=== PATIENT | female | born 1980 | race Caucasian/White ===

== ENCOUNTER 2021-08-25 11:04 | Day surgery (SDC) | payer MEDICAID ==
[~2021-08-25] VITALS: Ht 175.3 cm; Wt 92.7 kg
[~2021-08-25 11:04] MED LIST: SODIUM CHLORIDE 0.9% 1,000 ML IV ONE; SODIUM CHLORIDE 0.9% 1,000 ML ONE
[2021-08-25] MEDS ORDERED: PROPOFOL 1% 20 ML VIAL IVP ONE (11:05)
[2021-08-25 11:38] LABS: COVID AG,FIA SOURCE NASAL SWAB
== END 2021-08-25 15:10 | disposition home or self-care (01) ==
LOC: SURGERY 11:04
PROVIDERS: ATTEND Internal Medicine Gastroenterology
DX: K64.1 Second degree hemorrhoids (principal); K63.89 Other specified diseases of intestine; K50.90 Crohn's disease, unspecified, without complications; K29.70 Gastritis, unspecified, without bleeding; G89.29 Other chronic pain; F32.9 Major depressive disorder, single episode, unspecified; Z87.01 Personal history of pneumonia (recurrent); Z79.899 Other long term (current) drug therapy; Z72.89 Other problems related to lifestyle; Z98.890 Other specified postprocedural states
CPT/HCPCS: 43239; 45380; 84703; 87426; 88305; 88312; 88313; C9803; J2704; J7030